=== PATIENT | male | born 1975 | race Caucasian/White ===

== ENCOUNTER → 2019-04-23 | Outpatient (CLI) | payer OTHER ==
[~2019-04-23] MED LIST: IOPAMIDOL 370 MG/ML 200 ML INFUS..BTL INJ ONE; METOPROLOL TARTRATE 25 MG TAB ONE; METOPROLOL TARTRATE INJ 1 MG/ML VIAL ONE; NITROGLYCERIN 0.4 MG SUBL ONE; SODIUM CHLORIDE 0.9% 100 ML ONE
[2019-04-23 08:46] LABS: BLOOD UREA NITROGEN 11 mg/dL (7-26); BUN/CREATININE RATIO 12 (6-25); CREATININE, SERUM 0.92 mg/dL (0.72-1.25); EST GLOMERULAR FILTRATION RATE > 60 ML/MIN (60-)
--- NOTE | 2019-04-23 13:10 | Diagnostic Imaging Report ---
ADDENDUM #1 Addendum: This is a clarification for the amount of beta blockers administered. The patient received metoprolol 25 mg by mouth and not IV. Signed by: Dr. Diana Covington M.D. on 04/23/2019 1:35 PM ORIGINAL REPORT EXAM: CALCIUM SCORE AND CORONARY CTA INDICATION: ^[id number] ^[id number] ^CHEST PAIN COMPARISON: None. TECHNIQUE: Multi-detector CT technology was employed ([employer]). Minimal slice thickness was performed following the intravenous administration of contrast material. The patient was premedicated with 2.5 mg i.v. metoprolol and 0.4 mg sublingual nitroglycerin for heart rate control and coronary dilation, respectively. IV CONTRAST: 100 mL of Isovue-370 ORAL CONTRAST: None COMPLICATIONS: None RADIATION DOSE: Total DLP: 1466 mGy*cm Estimated effective dose: (DLP x 0.015 x size factor) mSv CTDIvol has been reviewed. It is below the limits set by the Radiation Protocol Committee (RPC). For optimization of anatomic evaluation, multiplanar reconstruction, maximum intensity projections, and advanced 3-D off-line postprocessing were performed on a dedicated stand-alone workstation under the direct supervision of the interpreting physician. QUALITY: Excellent FINDINGS: CALCIUM SCORE: The observed Agatston Calcium Score of 0 is at percentile 25% for subjects of the same age and gender who are free of clinical cardiovascular disease and treated diabetes. The Agatston score for each vessel is as follows: LM: 0 LAD: 0 LCx: 0 RCA: 0 DISTRIBUTION OF THE CALCIFIED PLAQUES: No identifiable calcified plaques in the coronary arteries. CORONARY ANATOMY: There is normal origin of the coronary arteries. The coronary arteries are diffusely tortuous. Left Main Coronary Artery: The left main is normal sized vessel that bifurcates into the LAD and circumflex. There is no evidence of atherosclerotic changes or stenotic disease. Left Anterior Descending Coronary Artery: The LAD is a normal size vessel that wraps around the apex. It gives rise to 2 acute diagonal branches. There is no evidence of atherosclerotic changes or stenotic disease. Left Circumflex Coronary Artery: The LCX is a normal size vessel, which is non-dominant. It gives rise to 2 obtuse marginal branches. There is no evidence of atherosclerotic changes or stenotic disease. Right Coronary Artery: The RCA is a normal size vessel, which is dominant. It gives rise to a conus branch, AV ad branch, and 2 acute marginal branches. In its distal segment it bifurcates into the PDA and PV branch. There is no evidence of atherosclerotic changes or stenotic disease. CARDIAC MORPHOLOGY AND FUNCTION: The right and left atria and ventricles are morphologically normal. There is normal resting global left ventricular systolic function. LVEF: 63%, LV end diastolic volume: 191.7 cc LV end systolic volume: 71 cc LV stroke volume: 121 cc LIMITED CHEST: The main pulmonary artery normal in size, measuring 2.5 cm in diameter. There are multiple mildly prominent mainly noncalcified lymph nodes with the largest in the proximal left hilar, measuring 1.4 cm in transverse diameter on series 3, image 62. In addition there is a partially calcified right lower paratracheal lymph node measuring up to 1.1 cm on image 12. The visualized lungs are clear. The visualized portions of the ascending and descending thoracic aorta are of normal size. Small hiatal hernia. LIMITED ABDOMEN: Few scattered hypodensities throughout the liver with the largest measuring 1.6 cm at the dome on series 3, image 178 may represent cysts or hemangiomas. BONES: No acute osseous abnormalities. IMPRESSION: 1. Total Agatston Calcium Score: 0 that corresponds to percentile 25%, representing No identifiable calcified plaques in the coronary arteries. 2. Normal coronary anatomy without evidence of atherosclerotic changes or stenotic disease. CAD-DAVID: 0 Reference: [email or web address] 3. Mediastinal and left hilar lymphadenopathy, mainly non calcified of uncertain etiology may be inflammatory (such as sarcoidosis) or infectious. If prior images become available, comparison would be helpful. Otherwise, recommend follow-up CT chest with IV contrast in 10-12 weeks. Signed by: Dr. Diana Covington M.D. on 04/23/2019 1:07 PM
== END ==
LOC: CT 07:36
PROVIDERS: ATTEND Internal Medicine Cardiovascular Disease
DX: R07.9 Chest pain, unspecified (principal)
CPT/HCPCS: 36415; 75574; 82565; 84520; J7050; Q9967